=== PATIENT | female | born 1980 | race Caucasian/White ===

== ENCOUNTER 2016-08-09 00:26 | Emergency (ER) | payer OTHER ==
[2016-08-09 01:52] LABS: ABSOLUTE NEUTROPHIL COUNT 4.4 K/mm3 (1.8-7.7); BASO % 0.4 % (0.2-1.0); EOS # 0.1 (0.0-0.5); EOS % 1.4 % (0.9-2.9); HEMOGLOBIN 13.3 gm/l (12.0-16.0); IMM NEUT% 0.1 % (0-1); LYMPH # 3.3 (1.0-4.8); MEAN CELL VOLUME 94.1 fl (81.0-99.0); MEAN CORPUSCULAR HEMOGLOBIN 31.3 pg (27.0-31.0); MEAN CORPUSCULAR HGB CONC 33.3 g/dl (33.0-37.0); MEAN PLATELET VOLUME 10.4 fl (7.4-10.4); MONO # 0.6 (0.0-0.8); MONO % 7.1 % (4-12); PLATELET COUNT 310 K/mm3 (130-400)
[2016-08-09 02:10] LABS: ALB/GLOB RATIO 1.5 (>1.0); ALBUMIN 4.4 gm/dL (3.5-5.7); CALCIUM 9.1 mg/dL (8.6-10.3)
[2016-08-09] MEDS ORDERED: OLANZAPINE 5 MG TABLET ONE (02:43)
[2016-08-09 03:01] LABS: SPECIFIC GRAVITY 1.025 (1.001-1.030); URINE BILIRUBIN NEGATIVE (NEGATIVE); URINE BLOOD NEGATIVE (NEGATIVE); URINE GLUCOSE (UA) NEGATIVE (NEGATIVE); URINE LEUKOCYTE ESTERASE TRACE (NEGATIVE); URINE NITRITE NEGATIVE (NEGATIVE); URINE PROTEIN NEGATIVE (NEGATIVE); URINE UROBILINOGEN NORMAL (0-1 mg/dl)
[2016-08-09 03:08] LABS: URINE APPEARANCE SL CLOUDY; URINE COLOR YELLOW
[2016-08-09 03:09] LABS: URINE BACTERIA TRACE
[2016-08-09 03:16] LABS: AMPHETAMINES/METHAMPHETAMINES POSITIVE (NEGATIVE); COCAINE NEGATIVE (NEGATIVE); MARIJUANA NEGATIVE (NEGATIVE); METHADONE NEGATIVE (NEGATIVE); OPIATES NEGATIVE (NEGATIVE); TRICYCLIC ANTIDEPRESSANTS NEGATIVE (NEGATIVE)
--- NOTE | 2016-08-09 08:44 | RAD ---
CHEST 2 VIEWS HISTORY: Confusion and chest pain. Frontal and lateral chest radiographs dated 08/09/2016. COMPARISON: None. FINDINGS: LUNG VOLUMES: Moderate hyperinflation. FOCAL AIRSPACE OPACITY: No gross airspace consolidation. PLEURAL EFFUSION: None. CARDIOMEDIASTINAL SILHOUETTE: Nonenlarged. PNEUMOTHORAX: None identified. OSSEOUS STRUCTURES: No grossly destructive lesions. Minor mid thoracic disc degeneration. IMPRESSION: Hyperinflation suggesting obstructive pulmonary disease. No acute cardiopulmonary process identified.
== END 2016-08-09 03:39 | disposition home or self-care (01) ==
LOC: ED 00:26
DX: R44.3 Hallucinations, unspecified (principal); R07.9 Chest pain, unspecified; M79.602 Pain in left arm; T43.625A Adverse effect of amphetamines, initial encounter; F19.10 Other psychoactive substance abuse, uncomplicated; Y92.9 Unspecified place or not applicable